=== PATIENT | female | born 1965 | race Caucasian/White ===

== ENCOUNTER 2017-02-08 16:44 | Emergency (ER) | payer OTHER ==
[~2017-02-08] VITALS: Ht 175.3 cm; Wt 109.0 kg
[2017-02-08] MEDS ORDERED: NORCO 7.5/321 TABLET PO (18:52)
[2017-02-08] MEDS ORDERED: INDOCIN50 MG PO (18:52)
[2017-02-08 19:06] VITALS: BP 131/60
== END 2017-02-08 19:07 | disposition home or self-care (01) ==
LOC: RME 16:44 → EME 16:44 → RME 19:07
DX: S46.002A Unspecified injury of muscle(s) and tendon(s) of the rotator cuff of left shoulder, initial encounter (principal); X58.XXXA Exposure to other specified factors, initial encounter
CPT/HCPCS: 93005; 99281; 99283